=== PATIENT | female | born 1965 | race Caucasian/White ===

== ENCOUNTER → 2017-08-03 | Outpatient (CLI) | payer MEDICARE, MEDICAID ==
[~2017-08-03] MED LIST: CYMBALTA60 MG PO; HYDROXYZINE HCL50 MG PO; KEPPRA250 MG PO; LYRICA 75 MG CA75 MG PO; NORCO 5-325 TA1 EACH PO; TEMAZEPAM15 MG PO; VOLTAREN 50MG T50 MG PO
== END ==
LOC: M.RAD 08-02 09:00
DX: M81.0 Age-related osteoporosis without current pathological fracture (principal); N91.2 Amenorrhea, unspecified; Z78.0 Asymptomatic menopausal state

== ENCOUNTER → 2018-04-03 | Outpatient (CLI) | payer MEDICARE, MEDICAID | LOC: M.CT 08:44 | DX: R91.8 Other nonspecific abnormal finding of lung field (principal) ==

== ENCOUNTER → 2018-04-09 | Outpatient (CLI) | payer MEDICARE, MEDICAID | LOC: M.CT 08:56 | DX: J43.9 Emphysema, unspecified (principal); J98.11 Atelectasis; G90.09 Other idiopathic peripheral autonomic neuropathy; M81.0 Age-related osteoporosis without current pathological fracture; Z90.710 Acquired absence of both cervix and uterus ==

== ENCOUNTER 2018-09-01 17:09 | Emergency (ER) | payer MEDICARE, MEDICAID ==
[~2018-09-01] VITALS: Ht 167.6 cm; Wt 63.5 kg
[2018-09-01] MEDS ORDERED: ROBAXIN 750 MG750 M1 PO (17:28)
[2018-09-01] MEDS ORDERED: DOXYCYCLINE 10100 MG PO (17:28)
[2018-09-01] MEDS ORDERED: CHANTIX1 MG PO (17:28)
[2018-09-01] MEDS ORDERED: LINZESS72 MCG PO (17:29)
[2018-09-01] MEDS ORDERED: PHENERGAN 25 MG25 M1 PO (17:29)
[2018-09-01] MEDS ORDERED: PEPCID AC10 MG PO (17:29)
[2018-09-01] MEDS ORDERED: SINGULAIR 10 MG10 M1 PO (17:29)
[2018-09-01] MEDS ORDERED: FLOVENT HFA 4444 MCG INH (17:29)
[2018-09-01] MEDS ORDERED: CELEXA20 MG PO (17:29)
[2018-09-01] MEDS ORDERED: TRAZODONE 150150 M1 PO (17:30)
[2018-09-01] MEDS ORDERED: CYMBALTA20 MG PO (17:30)
[2018-09-01] MEDS ORDERED: LEVETIRACETAM250 MG PO (17:30)
[2018-09-01] MEDS ORDERED: ALENDRONATE SODI5 MG PO (17:30)
[2018-09-01] MEDS ORDERED: FLEXERIL PO (17:30)
[2018-09-01] MEDS ORDERED: LYRICA 50 MG50 MG PO (17:30)
[2018-09-01] MEDS ORDERED: PRILOSEC 10MG C10 MG PO (17:30)
[2018-09-01] MEDS ORDERED: DICLOFENAC SODI25 MG PO (17:31)
[2018-09-01 18:19] LABS: ABSOLUTE BASOPHILS 0.1 thou/uL (0.0-0.2); ABSOLUTE EOSINOPHILS 0.3 thou/uL (0.0-0.7); ABSOLUTE LYMPHOCYTES 2.4 thou/uL (0.8-5.3); ABSOLUTE MONOCYTES 0.4 thou/uL (0.0-1.2); ABSOLUTE NEUTROPHILS 3.6 thou/uL (1.6-8.1); BASOPHILS 1.1 %; EOSINOPHILS 4.5 %; HEMATOCRIT 47.5 % (37.0-47.0); HEMOGLOBIN 16.2 gm/dL (12.0-15.0); LYMPHOCYTES 34.8 %; MCHC 34.2 g/dL (28.0-37.0); MCV 87.5 fL (80.0-100.0); MONOCYTES 5.7 %; NUCLEATED RBCS 0 /100WBC; PLATELET COUNT* 236 thou/uL (150-400); POLYS 53.9 %; RBC 5.42 mil/uL (4.20-5.00); RDW-CV 12.8 % (10.5-14.5); WBC 6.8 thou/uL (4.0-11.0)
[2018-09-01 18:26] LABS: CALCIUM 9.2 mg/dL (8.5-10.1); CREATININE 0.9 mg/dL (0.6-1.3); POTASSIUM 4.4 mmol/L (3.5-5.1)
[2018-09-01 18:30] LABS: ALBUMIN 4.4 g/dL (3.4-5.0); TOTAL BILIRUBIN 0.5 mg/dL (<0.1-1.0); TOTAL PROTEIN 7.9 g/dL (6.4-8.2)
[2018-09-01] MEDS ORDERED: PREDNISONE50 MG PO (19:48)
[2018-09-01] MEDS ORDERED: LEVAQUIN 750 M750 MG PO (19:48)
[2018-09-01] MEDS ORDERED: BENTYL 20 MG TA20 M1 PO (19:48)
[2018-09-01] MEDS ORDERED: VENTOLIN HFA 1818 GM INH (19:48)
[2018-09-01 20:08] VITALS: BP 92/58
== END 2018-09-01 20:08 | disposition home or self-care (01) ==
LOC: M.ERS 17:09
PROVIDERS: Nurse Practitioner Family
DX: K52.9 Noninfective gastroenteritis and colitis, unspecified (principal); J18.9 Pneumonia, unspecified organism; Z90.49 Acquired absence of other specified parts of digestive tract; Z90.710 Acquired absence of both cervix and uterus; Z88.8 Allergy status to other drugs, medicaments and biological substances

== ENCOUNTER 2018-09-16 18:48 | Emergency (ER) | payer MEDICARE, MEDICAID ==
[~2018-09-16] VITALS: Ht 167.6 cm; Wt 63.5 kg
[~2018-09-16 18:48] MED LIST changes: +ALENDRONATE SODI5 MG PO; +BENTYL 20 MG TA20 M1 PO; +CELEXA20 MG PO; +CHANTIX1 MG PO; +CYMBALTA20 MG PO; +DICLOFENAC SODI25 MG PO; +DOXYCYCLINE 10100 MG PO; +FLEXERIL PO; +FLOVENT HFA 4444 MCG INH; +LEVAQUIN 750 M750 MG PO; +LEVETIRACETAM250 MG PO; +LINZESS72 MCG PO; +LYRICA 50 MG50 MG PO; +PEPCID AC10 MG PO; +PHENERGAN 25 MG25 M1 PO; +PREDNISONE50 MG PO; +PRILOSEC 10MG C10 MG PO; +ROBAXIN 750 MG750 M1 PO; +SINGULAIR 10 MG10 M1 PO; +TRAZODONE 150150 M1 PO; +VENTOLIN HFA 1818 GM INH
[2018-09-16] MEDS ORDERED: NORCO 5-325 TA1 EACH PO (20:07)
[2018-09-16 20:48] VITALS: BP 96/63
== END 2018-09-16 21:08 | disposition home or self-care (01) ==
LOC: M.ERS 18:48
DX: S20.211A Contusion of right front wall of thorax, initial encounter (principal); Z90.49 Acquired absence of other specified parts of digestive tract; Z90.710 Acquired absence of both cervix and uterus; F17.200 Nicotine dependence, unspecified, uncomplicated; Z88.8 Allergy status to other drugs, medicaments and biological substances; W50.0XXA Accidental hit or strike by another person, initial encounter; Y93.89 Activity, other specified; Y92.89 Other specified places as the place of occurrence of the external cause; Y99.8 Other external cause status

== ENCOUNTER 2018-09-29 10:51 | Inpatient (IN) | payer MEDICARE, MEDICAID ==
[~2018-09-29] VITALS: Ht 167.6 cm; Wt 65.3 kg
[2018-09-29 11:00] VITALS: BP 144/80
[2018-09-29 11:31] LABS: ABSOLUTE EOSINOPHILS 0.2 thou/uL (0.0-0.7); ABSOLUTE LYMPHOCYTES 1.7 thou/uL (0.8-5.3); ABSOLUTE MONOCYTES 0.4 thou/uL (0.0-1.2); ABSOLUTE NEUTROPHILS 3.4 thou/uL (1.6-8.1); BASOPHILS 0.5 %; EOSINOPHILS 3.9 %; HEMATOCRIT 43.9 % (37.0-47.0); HEMOGLOBIN 14.6 gm/dL (12.0-15.0); MCH 29.2 pg (26.0-34.0); MCHC 33.3 g/dL (28.0-37.0); MCV 87.5 fL (80.0-100.0); MONOCYTES 7.1 %; MPV 8.9 fl. (7.2-11.1); NUCLEATED RBCS 0 /100WBC; PLATELET COUNT* 183 thou/uL (150-400); POLYS 58.5 %; RBC 5.02 mil/uL (4.20-5.00); RDW-CV 12.9 % (10.5-14.5); WBC 5.8 thou/uL (4.0-11.0)
[2018-09-29 11:46] LABS: ANION GAP 9 mmol/L (7-16); BUN 9 mg/dL (7-18); CALCIUM 8.7 mg/dL (8.5-10.1); CHLORIDE 105 mmol/L (98-107); CO2 27 mmol/L (21-32); GLUCOSE 89 mg/dL (70-99); POTASSIUM 3.7 mmol/L (3.5-5.1); SODIUM 141 mmol/L (136-145); TROPONIN-I LEVEL <0.06 ng/mL (<0.06)
[2018-09-29 11:49] LABS: ALBUMIN 3.6 g/dL (3.4-5.0); ALKALINE PHOSPHATASE 82 U/L (46-116); SGOT 17 U/L (15-37); SGPT 18 U/L (30-65); TOTAL BILIRUBIN 0.3 mg/dL (<0.1-1.0); TOTAL PROTEIN 6.6 g/dL (6.4-8.2)
[2018-09-29 14:36] VITALS: BP 104/67
[2018-09-29 16:07] VITALS: BP 132/90
--- NOTE | 2018-09-29 18:55 | NUR ---
FALL AGREEMENT AND PT RIGHTS SIGNED.
[2018-09-29 19:42] VITALS: BP 99/64
[2018-09-30] VITALS: BP 91/57
[2018-09-30 04:00] VITALS: BP 84/55
--- NOTE | 2018-09-30 05:18 | NUR ---
PATIENT PARTIALLY PROGRESSING TOWARDS GOALS: PAIN PARTIALLY CONTROLLED WITH MEDICATION AND RELAXATION. PATIENT UP TO BEDSIDE COMMODE, ENCOURAGED TO BE NON WEIGHT BEARING ON RIGHT FOOT UNTIL PODIATRY EVAL. CALL LIGHT WITHIN REACH
--- NOTE | 2018-09-30 07:45 | NUR ---
ASSUMED CARE OF PT ASSESSED AND DOCUMENTED. PT IS ON CARDIAC MONITER TRACING NSR. SHE IS A&O WITH OUT C/O PAIN. VSS WNL. SHE IS AFEBRILE. PTS 02 WAS SAT 87. PUT PT ON 2L AND SAT NOW 90. SHE CONT ON FALL PRECAUTIONS PER FACILITY PROTOCOL. SHR REMAINS ON SEIZURE PRECAUTIONS. ELEVATED PTS R SPLINTED FOOT.WM.
[2018-09-30 08:00] VITALS: BP 97/69
[2018-09-30 12:00] VITALS: BP 77/48
--- NOTE | 2018-09-30 12:12 | EKG ---
[place] [address] ELECTROCARDIOGRAM REPORT Name: EUSEBIA ORDOÑEZ Room: [address] ADM IN M.R.#: [id number] Admission: 09/29/18 Attend Phys: Woodrow Martin MD Discharge: Date of : 69 Report #: [id number] THIS REPORT FOR: //name// [facility] ED Test Date: 2018-09-29 Test Time: 11:33:39 Pat Name: EUSEBIA ORDOÑEZ Department: Room: [facility] Gender: F [employer] Machine: ROLAN : 1965 Requested By: Jacquelyn Johnson Order Number: [id number] MD: Mario Camarena Measurements Intervals [place] Rate: 95 P: 55 NJ: 149 QRS: -50 QRSD: 104 T: 55 QT: 371 QTc: 467 Interpretive Statements Sinus rhythm Left anterior fascicular block Low voltage, extremity leads RSR' in V1 or V2, right VCD or RVH No previous ECG available for comparison Electronically Signed On 09-30-2018 12:11:55 CDT by Mario Camarena [email or web address] <ELECTRONICALLY SIGNED> By: Mario Camarena MD, FACC 09/30/18 1211 1133 1133 Mario Camarena MD, FAC /EPI
--- NOTE | 2018-09-30 12:16 | EKG ---
[place] [address] ELECTROCARDIOGRAM REPORT Name: EUSEBIA ORDOÑEZ Room: [address] ADM IN M.R.#: [id number] Admission: 09/29/18 Attend Phys: Woodrow Martin MD Discharge: Date of : 69 Report #: [id number] THIS REPORT FOR: //name// [facility] Test Date: 2018-09-30 Test Time: 08:28:22 Pat Name: EUSEBIA ORDOÑEZ Department: Room: [address] Gender: F [employer] Machine Operator: : 1965 Requested By: Woodrow Martin Order Number: [id number] Reading MD: Mario Camarena Measurements Intervals [address] Rate: 84 P: 50 GA: 167 QRS: -54 QRSD: 109 T: 28 QT: 391 QTc: 463 Interpretive Statements Sinus rhythm Left axis deviation Low voltage, extremity leads Nonspecific T abnormalities, anterior leads No previous ECG available for comparison Electronically Signed On 09-30-2018 12:15:59 CDT by Mario Camarena [email or web address] <ELECTRONICALLY SIGNED> By: Mario Camarena MD, [facility] 09/30/18 1215 7 7 Mario Camarena MD, [facility] /EPI
[2018-09-30 16:00] VITALS: BP 108/74
--- NOTE | 2018-09-30 17:23 | NUR ---
PT HAS SLEPT MOST OF THIS SHIFT. SHE IS UP TO THE BEDSIDE COMMODE. EDUCATION GIVEN ON DEMAND. ELEVATED FOOT ON PILLOW. HOURLY ROUNDING CONT.
[2018-09-30 19:45] VITALS: BP 121/80
[2018-10-01 00:09] VITALS: BP 110/70
[2018-10-01 03:42] VITALS: BP 106/77
[2018-10-01 08:00] VITALS: BP 122/79
[2018-10-01 12:00] VITALS: BP 106/79
--- NOTE | 2018-10-01 13:42 | NUR ---
MET WITH PT TO DISCUSS HOME SITUATION/DC PLANNING. PT LIVES WITH S/O AND SON. SHE IS NORMALLY INDEPENDENT AND ACTIVE. SHE USES O2 PRN THRU [place]. SHE HAS CRUTCHES ALSO. PT HASN'T HAD HH OR BEEN TO SNF. THERAPY TO SEE PT LATER TODAY. WILL FOLLOW
--- NOTE | 2018-10-01 14:29 | NUR ---
ASSUMED CARE OF PATIENT THIS AM AT 0730. PATIENT IS ALERT AND ORIENTED X 4. SHE C/O RIGHT FOOT PAIN OFF AND ON TODAY. PATIENT MEDICATED FOR PAIN NEEDED. TELE SHOWS NSR. FOOT DOCTOR IN THE AM AND ORDERS WRITTEN. WALKING BOOT ORDERED. PATIENT IS RESTING AT THIS TIME. WILL CONTINUE TO MONITOR.
[2018-10-01 16:00] VITALS: BP 121/80
--- NOTE | 2018-10-01 16:38 | 2DMMODE ---
[place] [address] 2 D/M-MODE ECHOCARDIOGRAM Name: EUSEBIA ORDOÑEZ Room: [address] IN [facility]#: [id number] Admission: 09/29/18 Attend Phys: Woodrow Martin, Discharge: Date of : 69 Date of Service: 10/01/18 1638 Report #: [id number] THIS REPORT FOR: //name// APPROVED REPORT Study performed: 10/01/2018 11:10:04 EXAM: Comprehensive 2D, Doppler, and color-flow Echocardiogram Patient Location: In-Patient Room #: 230 Status: routine BSA: 1.73 HR: 91 bpm BP: 106/77 mmHg Rhythm: NSR Other Information Study Quality: Good Indications Syncope 2D Dimensions IVSd: 10.17 (7-11mm) LVOT Diam: 19.98 (18-24mm) LVDd: 40.54 mm PWd: 9.84 (7-11mm) Ascending Ao: 28.56 (22-36mm) LVDs: 28.28 (25-40mm) Aortic Root: 31.38 mm Volumes Left Atrial Volume (Systole) LA ESV Index: 21.60 mL/m2 Aortic Valve AoV Peak Abdirashid.: 0.97 m/s AO Peak Gr.: 3.79 mmHg LVOT Max P.75 mmHg AO Mean Gr.: 2.12 mmHg LVOT Mean P.70 mmHg LVOT Max V: 0.97 m/s AO V2 VTI: 19.44 cm LVOT Mean V: 0.59 m/s JOZEF (VTI): 3.04 cm2 LVOT V1 VTI: 18.84 cm Mitral Valve E/A Ratio: 1.04 MV Decel. Time: 157.47 ms MV E Max Abdirashid.: 0.86 m/[place] [address] 2 D/M-MODE ECHOCARDIOGRAM Name: EUSEBIA ORDOÑEZ Room: [address] IN .R.#: [id number] Admission: 09/29/18 Attend Phys: Woodrow Martin, Discharge: Date of : 69 Date of Service: 10/01/18 1638 Report #: [id number] MV PHT: 45.67 ms MVA (PHT): 4.82 cm2 TDI E/Lateral E': 6.62 E/Medial E': 7.17 Medial E' Abdirashid.: 0.12 m/s Lateral E' Abdirashid.: 0.13 m/s Pulmonary Valve PV Peak Abdirashid.: 0.78 m/s PV Peak Gr.: 2.43 mmHg Tricuspid Valve RAP Estimate: 5.00 mmHg TR Peak Gr.: 24.95 mmHg RVSP: 30.00 mmHg PA Pressure: 30.00 mmHg Left Ventricle The left ventricle is normal size. There is normal LV segmental wall motion. There is normal left ventricular wall thickness. Left ventricular systolic function is normal. The left ventricular ejection fraction is within the normal range. LVEF is 55-60%. Grade I - abnormal relaxation pattern. Right Ventricle The right ventricle is normal size. The right ventricular systolic function is normal. Atria The left atrium size is normal. The right atrium size is normal. Aortic Valve Mild aortic valve sclerosis. No aortic regurgitation is present. There is no aortic valvular stenosis. Mitral Valve The mitral valve is normal in structure. Trace mitral regurgitation. No evidence of mitral valve stenosis. Tricuspid Valve The tricuspid valve is normal in structure. Trace tricuspid regurgitation. Borderline pulmonary hypertension. Pulmonic Valve The pulmonary valve is normal in structure. There is no pulmonic [place] [address] 2 D/M-MODE ECHOCARDIOGRAM Name: TIAGOEUSEBIA Saleem Room: [address]#: [id number] Admission: 09/29/18 Attend Phys: Woodrow Martin, Discharge: Date of : 69 Date of Service: 10/01/18 1638 Report #: [id number] Great Vessels The aortic root is normal in size. IVC is normal in size and collapses >50% with inspiration. Pericardium There is no pericardial effusion. <Conclusion> The left ventricle is normal size. There is normal left ventricular wall thickness. Left ventricular systolic function is normal. The left ventricular ejection fraction is within the normal range. Grade I - abnormal relaxation pattern. The right ventricle is normal size. The left atrium size is normal. Mild aortic valve sclerosis. No aortic regurgitation is present. There is no aortic valvular stenosis. The mitral valve is normal in structure. Trace mitral regurgitation. The tricuspid valve is normal in structure. IVC is normal in size and collapses >50% with inspiration. There is no pericardial effusion. There is normal LV segmental wall motion. LVEF is 55-60%. <ELECTRONICALLY SIGNED> By: Giovanny Mendes MD, FACC 10/01/18 1638 1638 1638 Giovanny Mendes MD, FACC /INF
[2018-10-01 19:49] VITALS: BP 113/81
[2018-10-02 00:23] VITALS: BP 119/87
[2018-10-02 04:57] VITALS: BP 115/77
--- NOTE | 2018-10-02 05:36 | NUR ---
PATIENT'S PAIN PARTIALLY CONTROLLED WITH PRN MEDICATION. PATIENT HAS STILL BEEN REQUESTING IV PAIN MEDICATION BUT STATING SHE IS WANTING TO BE DISCHARGED TODAY. PATIENT ENCOURAGED TO TRY PAIN MANAGEMENT WITH ORAL MEDICATION ONLY AND REST AND ICE. PATIENT IS WILLING TO ATTEMPT PAIN MANAGEMENT WITHOUT IV MEDS. CALL LIGHT WITHIN REACH
[2018-10-02 07:46] VITALS: BP 123/87
[2018-10-02 08:00] VITALS: BP 123/87
--- NOTE | 2018-10-02 11:34 | NUR ---
CONTINUE TO FOLLOW, MET WITH PT. SHE HOPES TO GO HOME TODAY, HAS CRUTCHES AND BOOT. STATES SHE HAS HELP AT HOME INCLUDING BF'S MOTHER WHO IS A NURSE. PT DECLINED HH. WILL FOLLOW
[2018-10-02 12:50] VITALS: BP 123/87
[2018-10-02 13:04] VITALS: BP 126/86
== END 2018-10-02 13:16 | disposition home or self-care (01) | DRG 543 ==
LOC: M.ERS 10:51 → M.TBA-ER 13:41 → M.2W 13:41
PROVIDERS: Physician Assistant
PROC: 2W3SX1Z Immobilization of Right Foot using Splint (ICD-10-PCS; principal; 2018-09-29)
DX: M80.071A Age-related osteoporosis with current pathological fracture, right ankle and foot, initial encounter for fracture (principal); E44.0 Moderate protein-calorie malnutrition; G45.9 Transient cerebral ischemic attack, unspecified; S92.901A Unspecified fracture of right foot, initial encounter for closed fracture; G90.8 Other disorders of autonomic nervous system; F17.210 Nicotine dependence, cigarettes, uncomplicated; G62.9 Polyneuropathy, unspecified; G89.29 Other chronic pain; F32.9 Major depressive disorder, single episode, unspecified; E66.01 Morbid (severe) obesity due to excess calories; I95.9 Hypotension, unspecified; Z68.23 Body mass index [BMI] 23.0-23.9, adult; Z90.49 Acquired absence of other specified parts of digestive tract; Z90.710 Acquired absence of both cervix and uterus; Z88.8 Allergy status to other drugs, medicaments and biological substances; Z79.899 Other long term (current) drug therapy; W18.39XA Other fall on same level, initial encounter; Y93.89 Activity, other specified; Y92.89 Other specified places as the place of occurrence of the external cause; Y99.8 Other external cause status